=== PATIENT | female | born 1990 | race Caucasian/White ===

== ENCOUNTER 2017-04-03 00:45 | Emergency (ER) | payer OTHER ==
[~2017-04-03] VITALS: Ht 154.9 cm; Wt 56.4 kg
[2017-04-03 00:59] VITALS: BP 99/72; PULSE 53; RESP 12; TEMP 98.4; O2SAT 100
[2017-04-03 01:24] VITALS: BP 99/72; PULSE 53; RESP 14; O2SAT 100
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
[2017-04-03 01:59] LABS: BLOOD, URINE NEG (NEG); GLUCOSE,URINE NEG (NEG); KETONE, URINE NEG (NEG); NITRITE,URINE NEG (NEG); PH, URINE 5.5 (5.0-8.5)
[2017-04-03 02:00] LABS: AUTOMATED NEUTROPHIL # 4.5 TH/MM3 (1.8-7.7); BASOPHIL % 0.5 % (0.0-2.0); EOSINOPHIL # 0.3 TH/MM3 (0-0.4); EOSINOPHIL % 3.2 % (0.0-4.0); HEMATOCRIT 38.6 % (35.0-46.0); HEMO FLAGS DIFF FINAL; LYMPH % 43.2 % (9.0-44.0); LYMPHOCYTE # 4.1 TH/MM3 (1.0-4.8); MEAN CELL VOLUME 94.5 FL (80.0-100.0); MEAN CORPUSCULAR HEMOGLOBIN 31.7 PG (27.0-34.0); MEAN CORPUSCULAR HGB CONC 33.5 % (32.0-36.0); MONO % 6.4 % (0.0-8.0); NEUT % 46.7 % (16.0-70.0); PLATELET COUNT 185 TH/MM3 (150-450); RED BLOOD COUNT 4.08 MIL/MM3 (4.00-5.30); WHITE BLOOD COUNT 9.5 TH/MM3 (4.0-11.0)
[2017-04-03 02:06] LABS: CHLORIDE 107 MEQ/L (98-107); COMMENT (UR) CULT NOT INDICATED; CULTURE IF INDICATED CULT NOT INDICATED; POTASSIUM 3.4 MEQ/L (3.5-5.1); RBC, URINE 0-2 /hpf (0-3); SODIUM (NA) 141 MEQ/L (136-145); SQUAMOUS EPITHELIAL CELL URINE 0-5 /hpf (0-5); URINE COLOR STRAW (YELLW/STRAW); WBC, URINE 0-2 /hpf (0-5)
[2017-04-03 02:10] LABS: ANION GAP 7 MEQ/L (5-15); BICARBONATE 27.2 MEQ/L (21.0-32.0); BLOOD UREA NITROGEN 15 MG/DL (7-18)
[2017-04-03 02:13] LABS: ALT (GPT) 19 U/L (10-53); AST (GOT) 14 U/L (15-37); GLOMERULAR FILTRATION RATE 70 ML/MIN (>89)
[2017-04-03 02:15] LABS: TOTAL BILIRUBIN ADULT 0.2 MG/DL (0.2-1.0)
[2017-04-03 02:16] LABS: ALKALINE PHOSPHATASE 55 U/L (45-117)
[2017-04-03 02:25] VITALS: BP 104/66; PULSE 63; RESP 16; O2SAT 100
[2017-04-03] MEDS ORDERED: IOHEXOL 350 MG/ML 10 ML VIAL (for RAD DIAG) IV ONE (02:39)
--- NOTE | 2017-04-03 02:43 | RADHPO ---
EXAM DATE/TIME: 04/03/2017 02:18 [facility] COMPARISON: No previous studies available for comparison. INDICATIONS : Intermittent dizziness and cephalgia for 2 weeks. RADIATION DOSE: 62.86 CTDIvol (mGy) MEDICAL HISTORY : None SURGICAL HISTORY : None. ENCOUNTER: Initial ACUITY: 2 weeks PAIN SCALE: 4/10 LOCATION: Bilateral cranial TECHNIQUE: Multiple contiguous axial images were obtained of the head. Using automated exposure control and adj ustment of the mA and/or kV according to patient size, radiation dose was kept as low as reasonably a chievable to obtain optimal diagnostic quality images. FINDINGS: There is no evidence for intracranial hemorrhage, mass effect, mass lesions, edema, or extra-axial fl uid collections. The visualized bony structures appear intact. The ventricles are normal size for t he patient's age. There are no signs of acute infarction for technique. CONCLUSION: Unremarkable study. Dwight Rosenthal MD on April 03, 2017 at 2:41 Board Certified Radiologist. This report was verified electronically.
--- NOTE | 2017-04-03 02:56 | RADHPO ---
EXAM DATE/TIME: 04/03/2017 02:18 [facility] COMPARISON: No previous studies available for comparison. INDICATIONS : Intermittent dizziness and cephalgia for 2 weeks. IV CONTRAST: 60 cc Omnipaque 350 (iohexol) IV RADIATION DOSE: 42.71 CTDIvol (mGy) MEDICAL HISTORY : None SURGICAL HISTORY : None. ENCOUNTER: Initial ACUITY: 2 weeks PAIN SCALE: 4/10 LOCATION: Left cranial TECHNIQUE: Volumetric scanning was performed using a multi-row detector CT scanner. The data was post processed with a variety of visualization algorithms including full volume maximum intensity projection, multi -planar sliding thin slab reformation, curved planar reformation, and surface rendering techniques. Using automated exposure control and adjustment of the mA and/or kV according to patient size, radiat ion dose was kept as low as reasonably achievable to obtain optimal diagnostic quality images. FINDINGS: There is excellent visualization of the major intracranial arteries out to the second-order branch ve ssels. There is no evidence for aneurysm, vessel truncation or stenosis, and no evidence for vascula r malformation. CONCLUSION: Normal examination. KAleyda Rosenthal MD on April 03, 2017 at 2:52 Board Certified Radiologist. This report was verified electronically.
[2017-04-03] MEDS ORDERED: BUTA1CAP PO (03:05)
== END 2017-04-03 03:19 | disposition home or self-care (01) ==
LOC: PHED 00:45
DX: R42 Dizziness and giddiness (principal); R51 Headache; Z86.79 Personal history of other diseases of the circulatory system
CPT/HCPCS: 70450; 70496; 80053; 81001; 84703; 85025; 99285; Q9967

== ENCOUNTER 2017-04-21 18:58 | Emergency (ER) | payer SELFPAY ==
[~2017-04-21] VITALS: Ht 152.4 cm; Wt 55.7 kg
[~2017-04-21 18:58] MED LIST: BUTA1CAP PO
[2017-04-21 19:07] VITALS: BP 97/70; PULSE 69; RESP 18; TEMP 98.2; O2SAT 97
[2017-04-21 19:39] VITALS: BP 97/70; PULSE 69; RESP 18; O2SAT 97
[2017-04-21] MEDS ORDERED: IBUP-232 PO (19:46)
[2017-04-21] MEDS ORDERED: diphenhydrAMINE HCL 50 MG/ML VIAL IV PUSH ONE (20:00)
[2017-04-21] MEDS ORDERED: PROCHLORPERAZINE INJ 10 MG/2 ML VIAL IV PUSH ONE (20:00)
[2017-04-21] MEDS ORDERED: SODIUM CHLOR 0.9% 1000 ML INJ 1,000 ML IV SCH (20:00)
--- NOTE | 2017-04-21 20:00 | PD ---
HPI Chief Complaint: headache Time Seen by Provider: 19:39 Travel History International Travel<30 days: No Contact w/Intl Traveler<30days: No Traveled to known affect area: No History of Present Illness HPI This 27-year-old female is complaining of headache. She's been having headache for several days. She's been taking ibuprofen without relief. She went to see a chiropractor who did a manipulation and she says he cracked her neck. Since then the pain has been much more severe and she is having pain on the right side of her neck. The pain has not let up since she saw a chiropractor. She had some tingling in her right arm and on the face. She is not on any medication. She says she generally does not suffer from headaches. The headache is aggravated by movement of the neck. PFSH Past Medical History Blood Disorders: Yes (phlebitis 2005) Diabetes: No Diminished Hearing: No Integumentary: Yes (PHLEBITIS) ?: Not LMP: 04/09/17 : 2 Para: 2 Miscarriage: 1 : 0 Past Surgical History Abdominal Surgery: Yes (COLOSTOMY AND REVERSAL AT 6 MONTHS OF AGE) Section: Yes (X2 2005/ 2006) Gynecologic Surgery: Yes (LEEP PROCEDURE) Other Surgery: Yes (breast augmentation) Social History Alcohol Use: Yes (socially) Tobacco Use: No Substance Use: No Allergies-Medications (Allergen,Severity, Reaction): Coded Allergies: No Known Allergies (Verified , 04/21/17) Reported Meds & Prescriptions Reported Meds & Active Scripts Active Reported Ibuprofen 600 Mg Tab 600 Mg PO QID Review of Systems General / Constitutional: No: Fever, Chills Eyes: No: Diploplia, Blurred Vision HENT: Positive: Headaches, No: Lightheadedness Cardiovascular: No: Chest Pain or Discomfort, Palpitations Physical Exam Narrative GENERAL: Well-developed female SKIN: Focused skin assessment warm/dry. HEAD: Atraumatic. Normocephalic. EYES: Pupils equal and round. No scleral icterus. No injection or drainage. ENT: No nasal bleeding or discharge. Mucous membranes pink and moist. NECK: Trachea midline. No JVD. There is no midline tenderness of the neck posteriorly. There is some tenderness in the strap muscles on the right side CARDIOVASCULAR: Regular rate and rhythm. No murmur appreciated. RESPIRATORY: No accessory muscle use. Clear to auscultation. Breath sounds equal bilaterally. GASTROINTESTINAL: Abdomen soft, non-tender, nondistended. Hepatic and splenic margins not palpable. MUSCULOSKELETAL: No obvious deformities. No clubbing. No cyanosis. No edema. NEUROLOGICAL: Awake and alert. No obvious cranial nerve deficits. Motor grossly within normal limits. Normal speech. PSYCHIATRIC: Appropriate mood and affect; insight and judgment normal. Data Data Last Documented VS Vital Signs Date Time Temp Pulse Resp B/P Pulse Ox O2 Delivery O2 Flow Rate FiO2 04/21/17 20:10 61 16 99/64 100 Room Air 04/21/17 19:07 98.2 Orders Complete Blood Count With Diff (04/21/17 19:51) Basic Metabolic Panel (Bmp) (04/21/17 19:51) Ed Urine Pregnancytest Poc (04/21/17 19:51) Sodium Chlor 0.9% 1000 Ml Inj (Ns 1000 M (04/21/17 20:00) Prochlorperazine Inj (Compazine Inj) (04/21/17 20:00) Diphenhydramine Inj (Benadryl Inj) (04/21/17 20:00) Cta Neck W Iv Contrast W 3d (04/21/17 ) Ct Brain W/O Iv Contrast(Rout) (04/21/17 ) Labs Laboratory Tests Test 04/21/17 20:35 White Blood Count 8.6 TH/MM3 Red Blood Count 4.05 MIL/MM3 Hemoglobin 13.2 GM/DL Hematocrit 37.9 % Mean Corpuscular Volume 93.5 FL Mean Corpuscular Hemoglobin 32.6 PG Mean Corpuscular Hemoglobin 34.9 % Concent Red Cell Distribution Width 11.7 % Platelet Count 176 TH/MM3 Mean Platelet Volume 9.0 FL Neutrophils (%) (Auto) 61.1 % Lymphocytes (%) (Auto) 32.2 % Monocytes (%) (Auto) 4.7 % Eosinophils (%) (Auto) 1.1 % Basophils (%) (Auto) 0.9 % Neutrophils # (Auto) 5.2 TH/MM3 Lymphocytes # (Auto) 2.8 TH/MM3 Monocytes # (Auto) 0.4 TH/MM3 Eosinophils # (Auto) 0.1 TH/MM3 Basophils # (Auto) 0.1 TH/MM3 CBC Comment DIFF FINAL Differential Comment Sodium Level 140 MEQ/L Potassium Level 3.8 MEQ/L Chloride Level 106 MEQ/L Carbon Dioxide Level 26.4 MEQ/L Anion Gap 8 MEQ/L Blood Urea Nitrogen 14 MG/DL Creatinine 0.93 MG/DL Estimat Glomerular Filtration 71 ML/MIN Rate Random Glucose 93 MG/DL Calcium Level 8.9 MG/DL [facility] Medical Decision Making Medical Screen Exam Complete: Yes Emergency Medical Condition: Yes Medical Record Reviewed: Yes Differential Diagnosis Differential includes muscle contraction headache, carotid dissection Narrative Course Patient expressed great concern that she had developed a dissection as a result of a chiropractic manipulation. A CTA of the carotids was done and has been read as negative. Patient has been medicated and reports improvement of her headache. This does seem to be a muscle contraction headache and I will prescribe Flexeril for her to use if it should persist Diagnosis Primary Impression: Muscle contraction headache Scripts Cyclobenzaprine (Flexeril)10 Mg Tab10 Mg PO TID #30 TAB Ref 0 Prov:Brody Toth MD 04/21/17 Disposition: 01 DISCHARGE HOME Condition: Stable Brody Toth MD Apr 21, 2017 20:00
[2017-04-21 20:10] VITALS: BP 99/64; PULSE 61; RESP 16; O2SAT 100
[2017-04-21 20:46] LABS: AUTOMATED NEUTROPHIL # 5.2 TH/MM3 (1.8-7.7); BASOPHIL # 0.1 TH/MM3 (0-0.2); BASOPHIL % 0.9 % (0.0-2.0); EOSINOPHIL # 0.1 TH/MM3 (0-0.4); EOSINOPHIL % 1.1 % (0.0-4.0); HEMATOCRIT 37.9 % (35.0-46.0); HEMO FLAGS DIFF FINAL; LYMPH % 32.2 % (9.0-44.0); LYMPHOCYTE # 2.8 TH/MM3 (1.0-4.8); MEAN CELL VOLUME 93.5 FL (80.0-100.0); MEAN CORPUSCULAR HEMOGLOBIN 32.6 PG (27.0-34.0); MEAN CORPUSCULAR HGB CONC 34.9 % (32.0-36.0); MONO % 4.7 % (0.0-8.0); NEUT % 61.1 % (16.0-70.0); PLATELET COUNT 176 TH/MM3 (150-450); RED BLOOD COUNT 4.05 MIL/MM3 (4.00-5.30); RED CELL DISTRIBUTION WIDTH 11.7 % (11.6-17.2); WHITE BLOOD COUNT 8.6 TH/MM3 (4.0-11.0)
[2017-04-21 20:53] LABS: POTASSIUM 3.8 MEQ/L (3.5-5.1)
[2017-04-21 20:56] LABS: BICARBONATE 26.4 MEQ/L (21.0-32.0)
[2017-04-21] MEDS ORDERED: IOHEXOL 350 MG/ML 10 ML VIAL (for RAD DIAG) IV ONE (21:09)
[2017-04-21 21:40] VITALS: BP 114/67; PULSE 80; RESP 16; O2SAT 98
--- NOTE | 2017-04-21 21:46 | RADRPT ---
EXAM DATE/TIME: 04/21/2017 21:09 [facility] COMPARISON: CT BRAIN W/O CONTRAST, April 03, 2017, 2:18. INDICATIONS : Headache for several day after visiting the chiropractor. [place] a popping sound from neck. RADIATION DOSE: 57.63 CTDIvol (mGy) MEDICAL HISTORY : None SURGICAL HISTORY : Colostomy. section.Leep Procedure ENCOUNTER: Initial ACUITY: 2 days PAIN SCALE: 7/10 LOCATION: cranial TECHNIQUE: Multiple contiguous axial images were obtained of the head. Using automated exposure control and adj ustment of the mA and/or kV according to patient size, radiation dose was kept as low as reasonably a chievable to obtain optimal diagnostic quality images. DICOM format image data is available electro nically for review and comparison. FINDINGS: CEREBRUM: The ventricles are normal for age. No evidence of midline shift, mass lesion, hemorrhage or acute in farction. No extra-axial fluid collections are seen. POSTERIOR FOSSA: The cerebellum and brainstem are intact. The 4th ventricle is midline. The cerebellopontine angle i s unremarkable. EXTRACRANIAL: The visualized portion of the orbits is intact. SKULL: The calvaria is intact. No evidence of skull fracture. CONCLUSION: Negative noncontrast CT. Faisal Rey MD on April 21, 2017 at 21:41 Board Certified Radiologist. This report was verified electronically.
--- NOTE | 2017-04-21 22:31 | RADRPT ---
EXAM DATE/TIME: 04/21/2017 21:09 [facility] COMPARISON: No previous studies available for comparison. INDICATIONS : Headache for several day after visiting the chiropractor. [place] a popping sound from neck IV CONTRAST: 81 cc Omnipaque 350 (iohexol) IV RADIATION DOSE: 42.16 CTDIvol (mGy) MEDICAL HISTORY : None SURGICAL HISTORY : Colostomy. section.Leep procedure ENCOUNTER: Initial ACUITY: 2 days PAIN SCALE: 7/10 LOCATION: Right neck Elevated flow velocities and ICA/CCA ratios have been found to correlate with increased degrees of vessel stenosis, calculated as percentage of diameter relative to a normal segment of distal ICA/CCA. TECHNIQUE: Volumetric scanning was performed using a multirow detector CT scanner. The data was post processed with a variety of visualization algorithms including full-volume maximum intensity projection, multip lanar sliding thin-slab reformation, curved-planar reformation, and surface-rendering techniques. Us ing automated exposure control and adjustment of the mA and/or kV according to patient size, radiatio n dose was kept as low as reasonably achievable to obtain optimal diagnostic quality images. DICOM f ormat image data is available electronically for review and comparison. FINDINGS: AORTIC ARCH: There is a three-vessel origin of the great vessels from the aorta. No evidence of ostial narrowing. RIGHT CAROTID: The common carotid artery is intact. The carotid bulb has a normal configuration without ulceration o r narrowing. The internal carotid artery lumen is smooth without stenosis. The external carotid sylvain ry is intact. LEFT CAROTID: The common carotid artery is intact. The carotid bulb has a normal configuration without ulceration or narrowing. The internal carotid artery lumen is smooth without stenosis. The external carotid ar carlie is intact. VERTEBRALS: The vertebral arteries have a symmetric diameter. No stenotic lesions are seen. CONCLUSION: Unremarkable exam. Faisal Rey MD on April 21, 2017 at 22:25 Board Certified Radiologist. This report was verified electronically.
[2017-04-21] MEDS ORDERED: CYCL1TAB29 PO (22:37)
== END 2017-04-21 22:58 | disposition home or self-care (01) ==
LOC: PHED 18:58
DX: R51 Headache (principal); M62.48 Contracture of muscle, other site
CPT/HCPCS: 70450; 70498; 80048; 84703; 85025; 96361; 96374; 96375; 99285; J0780; J1200; J7030; Q9967